=== PATIENT | male | born 1970 | race Caucasian/White ===

== ENCOUNTER 2019-03-31 10:26 | Emergency (ER) | payer OTHER ==
[~2019-03-31] VITALS: Ht 177.8 cm; Wt 90.7 kg
[2019-03-31] MEDS ORDERED: DIPHENHIST50 MG PO (10:46)
[2019-03-31] MEDS ORDERED: PREDNISONE 20 M20 MG PO (10:46)
[2019-03-31] MEDS ORDERED: PEPCID20 MG PO (10:46)
[2019-03-31] MEDS ORDERED: EPIPEN 2-P0.3 MG/0.3 IM (10:48)
[2019-03-31 11:47] VITALS: BP 123/93
== END 2019-03-31 11:47 | disposition home or self-care (01) ==
LOC: M.ERS 10:26
DX: T63.461A Toxic effect of venom of wasps, accidental (unintentional), initial encounter (principal); Z98.890 Other specified postprocedural states; Z91.013 Allergy to seafood; Z91.030 Bee allergy status; Y92.89 Other specified places as the place of occurrence of the external cause